=== PATIENT | female | born 1960 | race Caucasian/White ===

== ENCOUNTER → 2019-06-16 | Outpatient (CLI) | payer BC | LOC: COL.RAD 06:57 | DX: R31.9 Hematuria, unspecified (principal) | CPT/HCPCS: Q9967 ==

== ENCOUNTER → 2019-10-27 | Outpatient (CLI) | payer BC | LOC: COL.VAS 15:11 | DX: M79.601 Pain in right arm (principal); M79.89 Other specified soft tissue disorders; Z96.611 Presence of right artificial shoulder joint ==

== ENCOUNTER → 2020-01-31 | Outpatient (CLI) | payer BC ==
[~2020-01-31] VITALS: Ht 175.3 cm; Wt 85.6 kg
[~2020-01-31] MED LIST: CELEBREX50 MG PO; DYAZIDE 25 MG-31 CAP PO; NORVASC2.5 MG; ONE-A-DAY ESSE1 EACH PO; PROBIOTIC-MAJOR PO; PROZAC 10MG10 MG PO; TYLENOL PM EXTR1 TA1 PO
[2020-01-31 06:39] VITALS: BP 131/88; PULSE 79
== END ==
LOC: COL.CARD 06:22
DX: R00.2 Palpitations (principal); R06.09 Other forms of dyspnea
CPT/HCPCS: A9500

== ENCOUNTER → 2020-12-17 | Outpatient (CLI) | payer BC | LOC: MC.RAD 10:51 | DX: Z12.31 Encounter for screening mammogram for malignant neoplasm of breast (principal); Z98.890 Other specified postprocedural states ==

== ENCOUNTER → 2021-06-26 | Outpatient (CLI) | payer BC | LOC: COL.RAD 09:54 | DX: R10.11 Right upper quadrant pain (principal) ==

== ENCOUNTER → 2021-06-30 | Outpatient (CLI) | payer BC | LOC: COL.RAD 06:39 | DX: G24.9 Dystonia, unspecified (principal) | CPT/HCPCS: A9537; J2805 ==

== ENCOUNTER → 2021-11-10 | Outpatient (CLI) | payer BC | LOC: COL.RAD 12:16 | DX: M19.071 Primary osteoarthritis, right ankle and foot (principal); M19.072 Primary osteoarthritis, left ankle and foot | CPT/HCPCS: J3301; Q9967 ==

== ENCOUNTER → 2022-02-03 | Outpatient (CLI) | payer BC | LOC: MC.RAD 10:49 | DX: Z12.31 Encounter for screening mammogram for malignant neoplasm of breast (principal) ==

== ENCOUNTER → 2022-08-12 | Outpatient (CLI) | payer BC ==
[~2022-08-12] MED LIST changes: +BENICAR40 MG PO; +HELIOCARE; +LIPITOR20 MG PO; +MAXZIDE-25MG TA1 TAB PO; +MELATONIN5 M1 SL; +MOBIC15 MG PO; +MULTI VITAMINS1 TAB PO; +NORVASC 5MG5 MG/TAB PO; +PROBIOTIC BLEN1 EACH PO; +PROZAC40 MG PO
== END ==
LOC: COL.RAD 12:41
DX: M19.09 Primary osteoarthritis, other specified site (principal)
CPT/HCPCS: J3301; Q9967

== ENCOUNTER → 2022-11-18 | Outpatient (CLI) | payer BC | LOC: COL.RAD 12:44 | DX: M19.072 Primary osteoarthritis, left ankle and foot (principal); M19.071 Primary osteoarthritis, right ankle and foot | CPT/HCPCS: J3301; Q9967 ==

== ENCOUNTER → 2023-03-02 | Outpatient (CLI) | payer BC | LOC: COL.RAD 03-01 13:00 | DX: M19.071 Primary osteoarthritis, right ankle and foot (principal); M19.072 Primary osteoarthritis, left ankle and foot | CPT/HCPCS: J0665; J3301; Q9967 ==

== ENCOUNTER → 2023-07-08 | Outpatient (CLI) | payer BC | LOC: COL.RAD 09:35 | DX: M19.072 Primary osteoarthritis, left ankle and foot (principal); M19.071 Primary osteoarthritis, right ankle and foot | CPT/HCPCS: J0665; J3301; Q9967 ==